=== PATIENT | male | born 1965 | race Caucasian/White ===

== ENCOUNTER 2016-09-19 18:22 | Emergency (ER) | payer OTHER ==
[~2016-09-19 18:22] MED LIST: ASPIR 8181 MG PO; BENTYL 20MG TAB20 MG PO; DICLOFENAC SODI75 MG PO; DULERA 100 MCG8.8 GM INH; DULERA 200 MCG8.8 GM INH; KEPPRA1000 MG PO; KEPPRA500 MG PO; SIMVASTATIN40 MG PO; VENTOLIN HFA 66.7 GM INH; ZONISAMIDE100 MG PO
[2016-09-19 20:02] LABS: HEMOGLOBIN 14.4 gm/dl (14.0-17.5); RED BLOOD COUNT 4.91 M/UL (4.20-5.50)
[2016-09-19 23:19] LABS: BUN/CREATININE RATIO 13 (0-10)
== END 2016-09-19 23:07 | disposition home or self-care (01) ==
LOC: ER1 18:22
PROVIDERS: Family Medicine
DX: R51 Headache (principal); R11.10 Vomiting, unspecified; R42 Dizziness and giddiness; J44.9 Chronic obstructive pulmonary disease, unspecified; Z98.2 Presence of cerebrospinal fluid drainage device
CPT/HCPCS: 80053; 85025; 96374; 96375; 96376; 99283; J2060; J2270; J2405; J2550

== ENCOUNTER 2016-09-22 14:44 | Observation (INO) | payer OTHER ==
[2016-09-22 16:20] LABS: HEMOGLOBIN 14.6 gm/dl (14.0-17.5); RED BLOOD COUNT 4.9 M/UL (4.20-5.50); WHITE BLOOD COUNT 9.1 K/UL (4.5-11.0)
[2016-09-22 16:37] LABS: BUN/CREATININE RATIO 15 (0-10)
[2016-09-23 03:58] LABS: HEMOGLOBIN 13.7 gm/dl (14.0-17.5); RED BLOOD COUNT 4.64 M/UL (4.20-5.50); WHITE BLOOD COUNT 9.8 K/UL (4.5-11.0)
[2016-09-23] MEDS ORDERED: ZANTAC 150 MG150 MG PO (03:59)
[2016-09-23] MEDS ORDERED: VITAMIN B-121000 MC3 PO (03:59)
[2016-09-23] MEDS ORDERED: LORCET PLUS 7.1 EACH PO (04:00)
[2016-09-23] MEDS ORDERED: AUGMENTIN TAB875 MG PO (04:00)
[2016-09-23] MEDS ORDERED: DIASTAT 2.5 MG2.5 MG PR (04:03)
[2016-09-23] MEDS ORDERED: FLONASE 0.05% N16 GM (04:03)
[2016-09-23] MEDS ORDERED: VOLTAREN100 GM TP (04:05)
[2016-09-23] MEDS ORDERED: VITAMIN D 11000 UNIT PO (04:07)
[2016-09-23 04:22] LABS: BUN/CREATININE RATIO 18 (0-10)
[2016-09-24 06:16] LABS: HEMOGLOBIN 13.3 gm/dl (14.0-17.5); RED BLOOD COUNT 4.48 M/UL (4.20-5.50)
[2016-09-24 06:48] LABS: BUN/CREATININE RATIO 16 (0-10)
== END 2016-09-25 20:12 | disposition home or self-care (01) ==
LOC: ER1 14:44 → ZEROF 18:26 → M/S 18:26
PROVIDERS: Emergency Medicine; Internal Medicine; ADMIT Internal Medicine Infectious Disease
DX: R55 Syncope and collapse (principal); R42 Dizziness and giddiness; E87.2 Acidosis; J44.1 Chronic obstructive pulmonary disease with (acute) exacerbation; R51 Headache; E78.5 Hyperlipidemia, unspecified; K58.9 Irritable bowel syndrome, unspecified; Z86.69 Personal history of other diseases of the nervous system and sense organs; Z87.891 Personal history of nicotine dependence; Z80.1 Family history of malignant neoplasm of trachea, bronchus and lung; Z82.49 Family history of ischemic heart disease and other diseases of the circulatory system; Z82.0 Family history of epilepsy and other diseases of the nervous system; Z79.1 Long term (current) use of non-steroidal anti-inflammatories (NSAID); Z79.2 Long term (current) use of antibiotics; Z79.891 Long term (current) use of opiate analgesic; Z79.899 Other long term (current) drug therapy; Z90.49 Acquired absence of other specified parts of digestive tract; Z98.890 Other specified postprocedural states
CPT/HCPCS: 36415; 70450; 71010; 72125; 80053; 80061; 80203; 81001; 82248; 82550; 82553; 83735; 84439; 84443; 84484; 85025; 85027; 93005; 93880; 94640; 94664; 96374; 99285; G0378; J2270; J7030

== ENCOUNTER 2016-10-20 06:56 | Emergency (ER) | payer OTHER ==
[~2016-10-20 06:56] MED LIST changes: +AUGMENTIN TAB875 MG PO; +DIASTAT 2.5 MG2.5 MG PR; +FLONASE 0.05% N16 GM; +LORCET PLUS 7.1 EACH PO; +VITAMIN B-121000 MC3 PO; +VITAMIN D 11000 UNIT PO; +VOLTAREN100 GM TP; +ZANTAC 150 MG150 MG PO
[2016-10-20 08:44] LABS: HEMOGLOBIN 14.1 gm/dl (14.0-17.5); RED BLOOD COUNT 4.75 M/UL (4.20-5.50); WHITE BLOOD COUNT 10.5 K/UL (4.5-11.0)
[2016-10-20 09:03] LABS: BUN/CREATININE RATIO 17 (0-10)
== END 2016-10-20 11:50 | disposition short-term general hospital (02) ==
LOC: ER1 06:56
PROVIDERS: Emergency Medicine
DX: G40.909 Epilepsy, unspecified, not intractable, without status epilepticus (principal); G93.2 Benign intracranial hypertension; J44.9 Chronic obstructive pulmonary disease, unspecified; Z87.891 Personal history of nicotine dependence; Z79.899 Other long term (current) drug therapy
CPT/HCPCS: 36415; 70450; 71010; 72125; 80053; 81001; 82550; 84484; 85025; 99285

== ENCOUNTER 2016-10-26 12:59 | Emergency (ER) | payer OTHER ==
[2016-10-26 14:11] LABS: HEMOGLOBIN 14.5 gm/dl (14.0-17.5); RED BLOOD COUNT 4.89 M/UL (4.20-5.50); WHITE BLOOD COUNT 9.7 K/UL (4.5-11.0)
== END 2016-10-26 16:09 | disposition home or self-care (01) ==
LOC: ER1 12:59
PROVIDERS: Emergency Medicine
DX: R42 Dizziness and giddiness (principal); R20.0 Anesthesia of skin; R41.82 Altered mental status, unspecified; J44.9 Chronic obstructive pulmonary disease, unspecified; Z87.891 Personal history of nicotine dependence; Z86.011 Personal history of benign neoplasm of the brain; Z88.8 Allergy status to other drugs, medicaments and biological substances
CPT/HCPCS: 36415; 80053; 80307; 81001; 85025; 93005; 99284

== ENCOUNTER → 2016-11-24 | Outpatient (CLI) | payer OTHER | LOC: HEART 5 14:13 | DX: J44.9 Chronic obstructive pulmonary disease, unspecified (principal); F17.210 Nicotine dependence, cigarettes, uncomplicated; R94.2 Abnormal results of pulmonary function studies | CPT/HCPCS: 94060; 94729 ==

== ENCOUNTER → 2021-07-15 | Outpatient (CLI) | payer MEDICARE ==
[~2021-07-15] MED LIST changes: +BRIVIACT PO; +DILANTIN100 MG PO; +NAPROSYN500 MG PO; +NORVASC 5 MG TAB5 MG PO; +ONDANSETRON ODT4 MG PO; +ONGLYZA5 MG PO; +PERCOCET 5/325 T1 EA PO; +PERCOCET 7.5-31 EACH PO; +ZIAC 2.5-6.251 EACH PO
== END ==
LOC: RAD 11:07
DX: M25.562 Pain in left knee (principal); M25.862 Other specified joint disorders, left knee
CPT/HCPCS: 73565

== ENCOUNTER 2022-02-24 06:49 | Emergency (ER) | payer MEDICARE ==
[2022-02-24 08:41] LABS: HEMOGLOBIN 16.5 gm/dl (14.0-17.5); RED BLOOD COUNT 5.28 M/UL (4.20-5.50); WHITE BLOOD COUNT 10.2 K/UL (4.5-11.0)
[2022-02-24 09:24] LABS: BUN/CREATININE RATIO 11 (0-10)
[2022-02-24] MEDS ORDERED: DELSYM30 MG/5 ML PO (13:51)
[2022-02-24] MEDS ORDERED: ZOFRAN 4 MG TAB4 MG PO (13:51)
== END 2022-02-24 14:02 | disposition home or self-care (01) ==
LOC: ER1 06:49
PROVIDERS: Physician Assistant Medical
DX: J06.9 Acute upper respiratory infection, unspecified (principal); Z88.8 Allergy status to other drugs, medicaments and biological substances; Z87.891 Personal history of nicotine dependence; Z20.822 Contact with and (suspected) exposure to COVID-19
CPT/HCPCS: 0240U; 70450; 71045; 80053; 81001; 82550; 82553; 84484; 85025; 87081; 87880; 93005; 99284